=== PATIENT | female | born 1950 | race Caucasian/White ===

== ENCOUNTER 2017-01-27 01:28 | Emergency (ER) | payer OTHER ==
[~2017-01-27 01:28] MED LIST: ABILIFY5 MG PO; AMLODIPINE BESY10 MG PO; DILANTIN100 MG PO; IBUPROFEN400 MG PO; LEVAQUIN500 MG PO; METOPROLOL SUCC25 MG PO; PRAVACHOL40 MG PO; SEROQUEL100 MG PO; SPIRIVA18 MCG INH; ZOFRAN ODT4 MG PO
--- NOTE | 2017-01-27 02:16 | ED CLINICAL REPORT ---
Clinical Report - Physicians/Mid Levels [facility] [address] [place] [address] 01/27/2017 1:29 Patient: TRINIDAD GIANG Time Seen: 02:07. Arrived- By private vehicle. Historian- patient. HISTORY OF PRESENT ILLNESS Chief Complaint: UPPER EXTREMITY SWELLING. Modifying factors. Not worsened by anything. Not made better by anything. Severity is described as being moderate in degree. The quality is noted to be "pain" (swelling, redness). This started about 2 days ago and is still present. Symptoms located in the area of the right hand. No chest pain, difficulty breathing, sensory loss, motor loss or repetitive hand use at work. She has had redness and swelling. (PT states she does not otherwise feel ill.). Patient notes the possibility of an injury. Mechanism of injury- (PT was working in her garden, and may have scratched or pricked herself, she states.). Similar symptoms previously: None. Recent medical care: Not recently seen/assessed. REVIEW OF SYSTEMS No fever, chills, eye discomfort, headache or sore throat. No cough, enlarged lymph nodes, neck pain, abdominal pain or nausea. No vomiting, diarrhea, black stools, difficulty with urination or urinary frequency. No hematuria or bloody stools. The patient has had a moderate, painful skin rash consisting of "redness" located on the right hand. All systems otherwise negative, except as recorded above. PAST HISTORY Problems: Tetanus Status. Immunizations. LNMP - Last Normal Menstrual Period. Hepatitis. Seizure Disorder. Bipolar Disorder. Schizophrenia. COPD - Chronic Obstructive Pulmonary Disease. Additional Surgeries: Adenoidectomy. Fracture Repair. Hysterectomy. Tonsillectomy. Medications: Chantix Oral. Pravastatin Sodium Oral. Metoprolol Tartrate Oral. Abilify Oral. Dilantin Oral. Allergies: Cortisone. Neosporin. SOCIAL HISTORY Smoker- current status unknown. History of drug use: marijuana. No alcohol use. ADDITIONAL NOTES The nursing notes have been reviewed. PHYSICAL EXAM Vital Signs: 01/27/2017 01:33 BP: 125/62. HR: 63. RR: 18. O2 saturation: 100%. Temp: 97.6 F. Pain level now: 10/15. Have been reviewed. Appearance: Alert. Oriented X3. No acute distress. Eyes: Pupils equal, round and reactive to light. Eyes normal inspection. ENT: Nose normal. Neck: Normal inspection. CVS: Normal heart rate and rhythm. Pulses normal. Strong peripheral pulses. Respiratory: No respiratory distress. Back: ROM normal. Skin: Skin intact. Skin warm and dry. Extremities: Right hand: mild erythema, tenderness and swelling localized to the distal and dorsal aspect of the hand. Neurovascular intact distally. (Involves proximal R middle finger. No flexor tendon tenderness.). No laceration, abrasion, ecchymosis, puncture wound or foreign body. No deformity. Extremities otherwise negative. Neuro: No motor deficit. No sensory deficit. (Grossly oriented.). LABS, X-RAYS, AND EKG Pulse Oximetry: 01/27/2017 01:33 O2 saturation: 100%. (FIO2 - room air). Interpretation: normal. PROGRESS AND PROCEDURES Course of Care: I did not find evidence of an abscess, deep tissue infection, or flexor tenosynovitis. Pt was given a dose of Bactrim for her cellulitis. We discussed the usual indications for return. Patient counseled in person regarding the patient's stable condition, diagnosis and need for follow-up. Concerns were addressed. Old medical records reviewed. Disposition: Discharged. Condition: stable. CLINICAL IMPRESSION Cellulitis of the right hand and right middle finger. INSTRUCTIONS Warnings: GENERAL WARNINGS: Return or contact your physician immediately if your condition worsens or changes unexpectedly, if not improving as expected, or if other problems arise. Your Current Medications: CONTINUE TAKING THE FOLLOWING MEDICATIONS: Abilify Oral. Chantix Oral. Dilantin Oral. Metoprolol Tartrate Oral. Pravastatin Sodium Oral. Prescription Medications: Hydrocodone/APAP 5mg / 325mg: take 1 orally every 6 hours as needed for pain. Dispense five (5). No refill. Trimethoprim-Sulfamethoxazole DS: take 1 tablet orally every 12 hours for 7 days. No refill. Follow-up: Follow up with your doctor in seven days if not better. Understanding of the discharge instructions verbalized by patient. (Electronically signed by Grecia Jackson MD 02/08/2017 17:10)
--- NOTE | 2017-01-27 02:16 | ED ORDER SUMMARY ---
..... Patient: TRINIDAD GIANG OrderSheet [facility] VisitID: [id number] [place] [address] 67y, F Registration Date/Time: 01/27/2017 ORDER SHEET Weight: 54.4 kg (stated) Allergies: Neosporin, Cortisone GENERAL ORDERS: MEDICATION ORDERS: Bactrim DS PO (Tablet 800-160 mg) 1 tab (NOW) (02:14 01/27/2017 [place] LOOMIS) (Ack 2:15 RMarsden R.N.) (2:18 RMarsden R.N.) IV FLUIDS: ORDER SHEET NOTES: [Electronically signed by Blanca Helm R.N. (12:59 02/01/2017)] [Electronically signed by Grecia Jackson MD (17:10 02/08/2017)] [Electronically locked/signed by Blanca Helm R.N. (12:59 02/01/2017)]
--- NOTE | 2017-01-27 02:16 | ED NURSING NOTES ---
Clinical Report - Nurses [facility] [address] [place] [address] 01/27/2017 1:29 Patient: TRINIDAD GIANG TRIAGE Triage time 01:34. Acuity: LEVEL 4. Chief Complaint: RIGHT UPPER EXTREMITY PAIN, SWELLING and REDNESS. --01:42 Rain Torres R.N. 01:33 01/27/17. BP: 125/62 taken on the left arm, while lying. HR: 63 (regular and normal rate). RR: 18. O2 saturation: 100% on room air. Temp: 97.6 F. Pain level now: 10/15. --01:42 Rain Torres R.N. Weight: 54.4 kg stated. Height/Length: 63 inches Per Patient. BMI: 21.2. --01:34 Rain Torres R.N. Medications Dilantin Oral. --01:37 Rain Torres R.N. Abilify Oral. --01:38 Rain Torres R.N. Metoprolol Tartrate Oral. --01:38 Rain Torres R.N. Pravastatin Sodium Oral. --01:39 Rain Torres R.N. Chantix Oral. --01:39 Rain Torres R.N. Allergies Neosporin. --01:37 Rain Torres R.N. Cortisone. --01:37 Rain Torres R.N. History Arrived by private vehicle. Historian: patient. This occurred (2 days ago). ( digging in yard 2 days ago now noticed itching and tingling with redness and swelling to right middle finger). PAST MEDICAL HX: Date of last tetanus shot cannot be recalled. The patient is post-menopausal. SOCIAL HX: Smoker- current status unknown. History of heavy drug use: marijuana. Recently used drugs just prior to arrival. No alcohol use. She has not traveled outside the [place] The patient was not exposed to tuberculosis, influenza, chicken pox, meningitis, MRSA, VRE, C-diff, SARS, Ariel flu, H1N1 flu, Ebola or MERS. SELF HARM ASSESSMENT: A self harm assessment was performed. The patient answered "no" to the question "Have you recently felt down, depressed, or hopeless?", "Have you noticed less interest or pleasure in doing things?", "Do you have thoughts of harming or killing yourself?", "Are you here because you tried to hurt yourself?", "Have you ever tried to hurt yourself before today?", "Have you recently had thoughts about harming or killing others?" and "Do you have any dangerous items in your possession?". FALL RISK ASSESSMENT: Fall risk assessment completed. No fall risk identified. NUTRITIONAL RISK ASSESSMENT: The nutritional risk assessment revealed no deficiencies. FUNCTIONAL ASSESSMENT: Functional assessment: no impairments noted. LEARNING NEEDS ASSESSMENT: The learning needs assessment revealed no barriers. ABUSE ASSESSMENT: Abuse assessment: The patient was asked "Do you feel safe in your home?" Abuse denied by patient. SKIN INTEGRITY ASSESSMENT: Skin integrity risk assessment completed. No skin integrity risk identified. --01:42 Rain Torres R.N. PROBLEMS: Bowel Obstruction. Contusion. Conjunctivitis. Hepatitis. Seizure Disorder. Bipolar Disorder. Schizophrenia. COPD - Chronic Obstructive Pulmonary Disease. --01:40 Rain Torres R.N. Fractured Phalanx (Finger) [RuleOut]. --01:40 Rain Torres R.N. ADDITIONAL SURGERIES: Adenoidectomy. Fracture Repair. Hysterectomy. Tonsillectomy. --01:40 Rain Torres R.N. Interventions ID band on patient. --01:42 Rain Torres R.N. PHYSICAL ASSESSMENT Ambulatory to room. GENERAL / NEURO / PSYCH: Oriented X 4. Appears in no acute distress. EXTREMITIES: Erythema on the extremities. Non-pitting edema of the upper extremities. right middle finger. Neuro-vascular status intact to the extremity. Right hand: tenderness, swelling, erythema and ecchymosis. SKIN: Skin intact. Skin is warm and dry. --01:43 Rain Torres R.N. NURSING PROGRESS NOTES Two patient identifiers checked. Call light placed in reach. Side rails up x 1. Bed placed in lowest position. Brakes of bed on. --01:43 Rain Torres R.N. Patient ready for evaluation- chart flagged. --01:43 Rain Torres R.N. DISPOSITION / DISCHARGE 02:18 01/27/2017 Bactrim DS (Sulfamethoxazole-TMP DS) PO Tablets 1 tab given. Allergies verified and confirmed 5 rights. --02:18 Aria Mac R.N. 02:22 01/27/17. Departure time: 02:22. No learning barriers present. Discharge instructions provided and reviewed with the patient. Reviewed warnings. Reviewed medication(s). Treatments reviewed. Reviewed referrals. Patient verbalized understanding. Written instructions provided in Kyrgyz. The patient was discharged home. She left the Emergency Department ambulatory and via private vehicle. --02:22 Aria Mac R.N. 01:33 01/27/17. BP: 125/62 taken on the left arm, while lying. HR: 63 (regular and normal rate). RR: 18. O2 saturation: 100% on room air. Temp: 97.6 F. Pain level now: 10/15. --02:22 Aria Mac R.N. Locked/Released at 02/01/2017 12:59 by Blanca Helm R.N.
--- NOTE | 2017-01-27 02:16 | ED ORDER SUMMARY ---
..... Patient: TRINIDAD GIANG OrderSheet [facility] VisitID: [id number] [place] [address] 67y, F Registration Date/Time: 01/27/2017 ORDER SHEET Weight: 54.4 kg (stated) Allergies: Neosporin, Cortisone GENERAL ORDERS: MEDICATION ORDERS: Bactrim DS PO (Tablet 800-160 mg) 1 tab (NOW) (02:14 01/27/2017 [place] LOOMIS) (Ack 2:15 RMarsden R.N.) (2:18 RMarsden R.N.) IV FLUIDS: ORDER SHEET NOTES: [Electronically signed by Blanca Helm R.N. (12:59 02/01/2017)] [Electronically signed by Grecia Jackson MD (17:10 02/08/2017)] [Electronically locked/signed by Blanca Helm R.N. (12:59 02/01/2017)]
--- NOTE | 2017-02-08 17:11 | ED MED RECONCILIATION SUMMARY ---
Patient: TRINIDAD GIANG Medication Reconciliation Report [facility] VisitID: [id number] [place] [address] 67y, F Registration Date/Time: 01/27/2017 Weight: 54.4 kg Height/Length: 63 in. BMI: 21.3 ALLERGIES: Cortisone, Neosporin The patient's Home Medications are listed below: CONTINUE TAKING THE FOLLOWING MEDICATIONS: Abilify Oral Chantix Oral Dilantin Oral Metoprolol Tartrate Oral Pravastatin Sodium Oral The source(s) of the original Home Medication information: Not obtained. The following Medications were given to the patient in the Emergency Department: Bactrim DS [PO] PO 1 tab, administered: 01/27/2017 2:18:00 AM The following Medications were prescribed to the patient: Hydrocodone/APAP 5mg / 325mg: take 1 orally every 6 hours as needed for pain. Dispense five (5). No refill. -- Grecia Jackson MD Trimethoprim-Sulfamethoxazole DS: take 1 tablet orally every 12 hours for 7 days. No refill. -- Grecia Jackson MD
--- NOTE | 2017-02-08 17:11 | ED MAR SUMMARY ---
..... Medication Administration Record [facility] [address] [place] [address] Patient: TRINIDAD GIANG Visit ID: [id number] 67y, F Weight: 54.4 kg Height/Length: 63 in BMI: 21.2 ALLERGIES: Cortisone, Neosporin Given 02:18 01/27/2017 Aria Mac RDenisse Medication Administered: BACTRIM DS [PO] (SULFAMETHOXAZOLE-TMP DS), Dose: 1 tab Tablets PO. Medication Ordered: Bactrim DS PO (Tablet 800-160 mg) 1 tab (NOW).
--- NOTE | 2017-02-08 17:11 | ED MED RECONCILIATION SUMMARY ---
Patient: TRINIDAD GIANG Medication Reconciliation Report [facility] VisitID: [id number] [place] [address] 67y, F Registration Date/Time: 01/27/2017 Weight: 54.4 kg Height/Length: 63 in. BMI: 21.3 ALLERGIES: Cortisone, Neosporin The patient's Home Medications are listed below: CONTINUE TAKING THE FOLLOWING MEDICATIONS: Abilify Oral Chantix Oral Dilantin Oral Metoprolol Tartrate Oral Pravastatin Sodium Oral The source(s) of the original Home Medication information: Not obtained. The following Medications were given to the patient in the Emergency Department: Bactrim DS [PO] PO 1 tab, administered: 01/27/2017 2:18:00 AM The following Medications were prescribed to the patient: Hydrocodone/APAP 5mg / 325mg: take 1 orally every 6 hours as needed for pain. Dispense five (5). No refill. -- Grecia Jackson MD Trimethoprim-Sulfamethoxazole DS: take 1 tablet orally every 12 hours for 7 days. No refill. -- Grecia Jackson MD
--- NOTE | 2017-02-08 17:11 | ED DISCHARGE INSTRUCTIONS ---
Patient: TRINIDAD GIANG General Instructions [facility] VisitID: [id number] [place] [address] 67y, F Registration Date/Time: 01/27/2017 Cellulitis of the right hand and right middle finger. INSTRUCTIONS Warnings: GENERAL WARNINGS: Return or contact your physician immediately if your condition worsens or changes unexpectedly, if not improving as expected, or if other problems arise. Your Current Medications: CONTINUE TAKING THE FOLLOWING MEDICATIONS: Abilify Oral. Chantix Oral. Dilantin Oral. Metoprolol Tartrate Oral. Pravastatin Sodium Oral. Prescription Medications: Hydrocodone/APAP 5mg / 325mg: take 1 orally every 6 hours as needed for pain. Dispense five (5). No refill. Trimethoprim-Sulfamethoxazole DS: take 1 tablet orally every 12 hours for 7 days. No refill. Follow-up: Follow up with your doctor in seven days if not better. Understanding of the discharge instructions verbalized by patient. ADDITIONAL INFORMATION Cellulitis You have an infection of the skin known as cellulitis. This usually starts with a scrape, cut, insect bite, blister or other opening in the skin which becomes infected. This is a serious condition. It must be watched closely to be sure the infection is not spreading. With antibiotic treatment, the size of the red area will gradually shrink in size until the skin returns to normal. This will take 7-10 days. The red area should never increase in size once the antibiotic medicine has been started. Occasionally, an infection will be resistant to one antibiotic and another one will have to be used. Home Care: 1) Limit the use of the affected part, since excess movement can cause the infection to spread. 2) If the infection is on your leg, walk as little as possible during the first few days of the treatment. Keep your leg elevated while sitting. This will reduce swelling. 3) Take all of the antibiotic medicine exactly as directed until it is gone. Be careful not to miss any doses, especially during the first seven days. Follow Up with your doctor or this facility as directed. Check the infected area daily for the warning signs listed below. Get Prompt Medical Attention if any of the following occur: -- Spreading area of redness -- Increasing swelling or pain -- Appearance of pus or drainage -- Fever over 100.4 F (38.0 C) oral, or over 101.4 F (38.6 C) rectal, after two days on antibiotics You have been given the following additional information: Cellulitis (Electronically signed by Grecia Jackson MD 02/08/2017 17:10)
--- NOTE | 2017-02-08 17:11 | ED MAR SUMMARY ---
..... Medication Administration Record [facility] [address] [place] [address] Patient: TRINIDAD GIANG Visit ID: [id number] 67y, F Weight: 54.4 kg Height/Length: 63 in BMI: 21.2 ALLERGIES: Cortisone, Neosporin Given 02:18 01/27/2017 Aria Mac RDenisse Medication Administered: BACTRIM DS [PO] (SULFAMETHOXAZOLE-TMP DS), Dose: 1 tab Tablets PO. Medication Ordered: Bactrim DS PO (Tablet 800-160 mg) 1 tab (NOW).
== END 2017-01-27 02:22 | disposition home or self-care (01) ==
LOC: ED SRH 01:28
DX: L03.113 Cellulitis of right upper limb (principal); L03.011 Cellulitis of right finger; Z79.899 Other long term (current) drug therapy; Z72.0 Tobacco use; Z88.8 Allergy status to other drugs, medicaments and biological substances; Z90.710 Acquired absence of both cervix and uterus

== ENCOUNTER 2017-01-30 16:36 | Emergency (ER) | payer OTHER ==
--- NOTE | 2017-01-30 18:14 | ED ORDER SUMMARY ---
..... Patient: TRINIDAD GIANG OrderSheet [facility] VisitID: [id number] [place] [address] 67y, F Registration Date/Time: 01/30/2017 ORDER SHEET Weight: 54.4 kg (stated) Allergies: Cortisone, Neosporin GENERAL ORDERS: CBC w Diff Urgent (17:11 01/30/2017 EKoroleva P.A.-C) (Ack 17:12 MIHIRoerdev) (17:31 Paul R.N.) BMP Urgent (17:11 01/30/2017 EKoroleva P.A.-C) (Ack 17:12 MIHIRoerdev) (17:31 Paul R.N.) PCT (Procalcitonin) Urgent (17:01/30/2017 EKoroleva P.A.-C) (Ack 17:12 MIHIRoepatito) (17:31 Paul R.N.) MEDICATION ORDERS: Bupivacaine Injection 0.5 % (soln) (NOW, place at bedside, with syringes & needles) (17:11 01/30/2017 EKoroleva P.A.-C) (Ack 17:31 Paul R.N.) IV FLUIDS: IV NS : initial bolus 1000 mL (1000 mL/hr), then 1000 mL/hr for X1 (NOW); Skinny (17:24 01/30/2017 EKoroleva P.A.-C) (Ack 17:31 Paul R.N.) (17:41 Paul R.N.) Clindamycin IV 900 mg/50mL (NOW) (17:24 01/30/2017 EKoroleva P.A.-C) (Ack 17:32 Paul R.N.) (17:42 Paul R.N.) ORDER SHEET NOTES: [Electronically signed by Kristi Cardoso PCeA.-C (18:43 01/30/2017)] [Electronically signed by Dee Dee Rousseau R.N. (08:00 01/31/2017)] [Electronically locked/signed by Dee Dee Rousseau R.N. (08:00 01/31/2017)]
--- NOTE | 2017-01-30 18:14 | ED CLINICAL REPORT ---
Clinical Report - Physicians/Mid Levels [facility] [address] [place] [address] 01/30/2017 16:38 Patient: TRINIDAD GIANG Time Seen: 17:49 Jan 30 2017. Arrived- By private vehicle. Historian- patient. HISTORY OF PRESENT ILLNESS Chief Complaint: SKIN RASH. This started 5 days SET OFF [employer] and is still present. It is described as painful. It has been located on the right index finger. (Patient reports's in the yard with her over the last few days, and unsure if she sustained injury, however has had swelling of her right middle digit. Patient was seen on the and started on antibiotics. Reports she was able to drain some pus out. Denies using warm soaks at home. Patient has been taking antibiotics. Denies any fevers or chills. Reports part of the rash has spread into her forearm as well as her bicep. Denies any fevers or chills.). REVIEW OF SYSTEMS No cough or lump in throat. All systems otherwise negative, except as recorded above. SOCIAL HISTORY Former smoker. Alcohol use. Patient is a recovering alcoholic. History of drug use: marijuana. ADDITIONAL NOTES The nursing notes have been reviewed. PHYSICAL EXAM Vital Signs: 01/30/2017 17:09 BP: 165/82. HR: 73. RR: 18. O2 saturation: 100%. Temp: 98.3 F. Pain level now: 2/10. Appearance: Alert. Neck: Lymphadenopathy present (streak to mid bicep). CVS: Normal heart rate and rhythm. Respiratory: No respiratory distress. Chest nontender. Skin: Skin warm. Erythema (r. middle digit paronychia noted,). There is warmth and lymphangitis. LABS, X-RAYS, AND EKG Laboratory Tests: CBC w Diff: (LISA: 01/30/2017 17:20) ( MsgRcvd 01/30/2017 17:52) Final results Test Result Flag Units (Reference) WHITE BLOOD COUNT 9.0 K/uL (4.5-11.5) RED BLOOD COUNT 3.78 L M/uL (4.00-5.20) HEMOGLOBIN 11.4 L gm/dL (12.0-16.0) HEMATOCRIT 34.1 L % (36.0-46.0) MEAN CELL VOLUME 90 fL (80-100) MEAN CORPUSCULAR HGB 30 pg (26-34) MEAN CORPUSCULAR HGB CONC 33 g/dL (31-37) RED CELL DISTRIBUTION WIDTH 13.6 % (11.6-14.8) PLATELET COUNT 212 K/uL (150-400) NEUTROPHIL % 57.9 % (50-75) LYMPH % 32.2 % (25-40) MONO % 7.0 % (3-14) EOSINOPHIL % 0.9 % (0-4) BASOPHIL % 2.0 % (0-2) [id number]: (LISA: 01/30/2017 17:20) ( MsgRcvd 01/30/2017 18:15) Final results Test Result Flag Units (Reference) PROCALCITONIN < 0.05 ng/mL (0-0.5) PCT Concentration: Interpretation : Risk/option for action PCT <=0.5 ng/mL : Systemic : Low risk forinfection(sepsis): progression to severeis not likely. : systemic infection.Local bacterial : CAUTION-PCT levelsinfection is : below 0.5 ng/mL do notpossible. : exclude an infection,because localizedinfections (withoutsystemic signs) may beassociated with suchlow levels. If PCT ismeasured very earlyafter a bacterialchallenge (usually <6hours), these valuesmay still be low. Inthis case PCT shouldbe re-assessed 6-24hours later. PCT >0.5 and : Systemic infection: Moderate risk for<= 2 ng/mL : (sepsis) is : progression to severepossible, but : systemic infection.other conditions : The patient should beare known to : closely monitoredelevate PCT. : both clinically andby re-assessing PCTwithin 6-24 hours. PCT > 2 ng/mL : Systemic infection: High risk for(sepsis) is likely: progression to severeunless other : systemic infection.causes are known. : PCT >= 10 ng/mL : Important systemic: High likelihood ofinflammatory : severe sepsis orresponse, almost : septic shock.exclusively due to:severe bacterial :sepsis or septic :shock. : BMP: (LISA: 01/30/2017 17:20) ( MsgRcvd 01/30/2017 18:12) Final results Test Result Flag Units (Reference) GLUCOSE 97 mg/dL (70-110) BUN 12 mg/dL (7-18) CREATININE 0.9 mg/dL (0.6-1.3) Estimated GFR >60 mL/min Estimated GFR- >60 mL/min Note: Persistent reduction over 3 months in eGFR<60 mL/min/1.73 m2 defines CKD. Patients with eGFR values>=60 mL/min/1.73 m2 may also have CKD if evidence ofpersistent proteinuria. Additional information may be foundat www.kidney.org. SODIUM 128 L mmol/L (136-145) POTASSIUM 3.7 mmol/L (3.5-5.1) CHLORIDE 94 L mmol/L (98-107) CARBON DIOXIDE 21 mmol/L (21-32) CALCIUM 9.3 mg/dL (8.5-10.1) . PROGRESS AND PROCEDURES Incision & Drainage of Abscess: Time-out completed immediately before the procedure. The abscess is located (r. middle digit). The risks of the procedure, benefits and alternatives were explained. Consent was obtained. Anesthesia provided by digital block using 0.50% Marcaine. ( small lateral incicision made with puurlent mild drainage). Course of Care: Paronychia drained, patient is afebrile with no tachycardia, no sepsis criteria. No injury crush injury in nature. Patient also given IV antibiotics, clindamycin, to have this reevaluated in 48 hours, to encourage warm soaks of the digit. 01/30/2017 18:20 BP: 144/78. HR: 70. RR: 18. O2 saturation: 97%. Pain level now: 4/10. Patient is stable. Symptoms better. Patient/family counseled. Disposition: Discharged. CLINICAL IMPRESSION Paronychia right middle finger. INSTRUCTIONS (salt water warm soaks follow up in 2-3 days to ensure improvement in ER or with PCP Address: [address] [place] [id number] elevate arm/ finger). Your Current Medications: CONTINUE TAKING THE FOLLOWING MEDICATIONS: Abilify Oral. Bactrim DS Oral : Started: 01/27/17. Chantix Oral. Dilantin Oral. Metoprolol Tartrate Oral. Pravastatin Sodium Oral. Prescription Medications: Clindamycin 300 mg: take 1 capsule orally every 8 hours for 10 days. No refill. (Electronically signed by Kristi Cardoso P.A.-C 01/30/2017 18:43)
--- NOTE | 2017-01-30 18:14 | ED ORDER SUMMARY ---
..... Patient: TRINIDAD GIANG OrderSheet [facility] VisitID: [id number] [place] [address] 67y, F Registration Date/Time: 01/30/2017 ORDER SHEET Weight: 54.4 kg (stated) Allergies: Cortisone, Neosporin GENERAL ORDERS: CBC w Diff Urgent (17:11 01/30/2017 EKoroleva P.A.-C) (Ack 17:12 MIHIRoerdev) (17:31 Paul R.N.) BMP Urgent (17:11 01/30/2017 EKoroleva P.A.-C) (Ack 17:12 MIHIRoerdev) (17:31 Paul R.N.) PCT (Procalcitonin) Urgent (17:01/30/2017 EKoroleva P.A.-C) (Ack 17:12 MIHIRoepatito) (17:31 Paul R.N.) MEDICATION ORDERS: Bupivacaine Injection 0.5 % (soln) (NOW, place at bedside, with syringes & needles) (17:11 01/30/2017 EKoroleva P.A.-C) (Ack 17:31 Paul R.N.) IV FLUIDS: IV NS : initial bolus 1000 mL (1000 mL/hr), then 1000 mL/hr for X1 (NOW); Skinny (17:24 01/30/2017 EKoroleva P.A.-C) (Ack 17:31 Paul R.N.) (17:41 Paul R.N.) Clindamycin IV 900 mg/50mL (NOW) (17:24 01/30/2017 EKoroleva P.A.-C) (Ack 17:32 Paul R.N.) (17:42 Paul R.N.) ORDER SHEET NOTES: [Electronically signed by Kristi Cardoso PCeA.-C (18:43 01/30/2017)] [Electronically signed by Dee Dee Rousseau R.N. (08:00 01/31/2017)] [Electronically locked/signed by Dee Dee Rousseau R.N. (08:00 01/31/2017)]
--- NOTE | 2017-01-30 18:14 | ED CLINICAL REPORT ---
Clinical Report - Physicians/Mid Levels [facility] [address] [place] [address] 01/30/2017 16:38 Patient: TRINIDAD GIANG Time Seen: 17:49 Jan 30 2017. Arrived- By private vehicle. Historian- patient. HISTORY OF PRESENT ILLNESS Chief Complaint: SKIN RASH. 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 It is described as painful. It has been located on the right index finger. (Patient reports's in the yard with her over the last few days, and unsure if she sustained injury, however has had swelling of her right middle digit. Patient was seen on the and started on antibiotics. Reports she was able to drain some pus out. Denies using warm soaks at home. Patient has been taking antibiotics. Denies any fevers or chills. Reports part of the rash has spread into her forearm as well as her bicep. Denies any fevers or chills.). REVIEW OF SYSTEMS No cough or lump in throat. All systems otherwise negative, except as recorded above. SOCIAL HISTORY Former smoker. Alcohol use. Patient is a recovering alcoholic. History of drug use: marijuana. ADDITIONAL NOTES The nursing notes have been reviewed. PHYSICAL EXAM Vital Signs: 01/30/2017 17:09 BP: 165/82. HR: 73. RR: 18. O2 saturation: 100%. Temp: 98.3 F. Pain level now: 2/10. Appearance: Alert. Neck: Lymphadenopathy present (streak to mid bicep). CVS: Normal heart rate and rhythm. Respiratory: No respiratory distress. Chest nontender. Skin: Skin warm. Erythema (r. middle digit paronychia noted,). There is warmth and lymphangitis. LABS, X-RAYS, AND EKG Laboratory Tests: CBC w Diff: (LISA: 01/30/2017 17:20) ( MsgRcvd 01/30/2017 17:52) Final results Test Result Flag Units (Reference) WHITE BLOOD COUNT 9.0 K/uL (4.5-11.5) RED BLOOD COUNT 3.78 L M/uL (4.00-5.20) HEMOGLOBIN 11.4 L gm/dL (12.0-16.0) HEMATOCRIT 34.1 L % (36.0-46.0) MEAN CELL VOLUME 90 fL (80-100) MEAN CORPUSCULAR HGB 30 pg (26-34) MEAN CORPUSCULAR HGB CONC 33 g/dL (31-37) RED CELL DISTRIBUTION WIDTH 13.6 % (11.6-14.8) PLATELET COUNT 212 K/uL (150-400) NEUTROPHIL % 57.9 % (50-75) LYMPH % 32.2 % (25-40) MONO % 7.0 % (3-14) EOSINOPHIL % 0.9 % (0-4) BASOPHIL % 2.0 % (0-2) [id number]: (LISA: 01/30/2017 17:20) ( MsgRcvd 01/30/2017 18:15) Final results Test Result Flag Units (Reference) PROCALCITONIN < 0.05 ng/mL (0-0.5) PCT Concentration: Interpretation : Risk/option for action PCT <=0.5 ng/mL : Systemic : Low risk forinfection(sepsis): progression to severeis not likely. : systemic infection.Local bacterial : CAUTION-PCT levelsinfection is : below 0.5 ng/mL do notpossible. : exclude an infection,because localizedinfections (withoutsystemic signs) may beassociated with suchlow levels. If PCT ismeasured very earlyafter a bacterialchallenge (usually <6hours), these valuesmay still be low. Inthis case PCT shouldbe re-assessed 6-24hours later. PCT >0.5 and : Systemic infection: Moderate risk for<= 2 ng/mL : (sepsis) is : progression to severepossible, but : systemic infection.other conditions : The patient should beare known to : closely monitoredelevate PCT. : both clinically andby re-assessing PCTwithin 6-24 hours. PCT > 2 ng/mL : Systemic infection: High risk for(sepsis) is likely: progression to severeunless other : systemic infection.causes are known. : PCT >= 10 ng/mL : Important systemic: High likelihood ofinflammatory : severe sepsis orresponse, almost : septic shock.exclusively due to:severe bacterial :sepsis or septic :shock. : BMP: (LISA: 01/30/2017 17:20) ( MsgRcvd 01/30/2017 18:12) Final results Test Result Flag Units (Reference) GLUCOSE 97 mg/dL (70-110) BUN 12 mg/dL (7-18) CREATININE 0.9 mg/dL (0.6-1.3) Estimated GFR >60 mL/min Estimated GFR- >60 mL/min Note: Persistent reduction over 3 months in eGFR<60 mL/min/1.73 m2 defines CKD. Patients with eGFR values>=60 mL/min/1.73 m2 may also have CKD if evidence ofpersistent proteinuria. Additional information may be foundat www.kidney.org. SODIUM 128 L mmol/L (136-145) POTASSIUM 3.7 mmol/L (3.5-5.1) CHLORIDE 94 L mmol/L (98-107) CARBON DIOXIDE 21 mmol/L (21-32) CALCIUM 9.3 mg/dL (8.5-10.1) . PROGRESS AND PROCEDURES Incision & Drainage of Abscess: Time-out completed immediately before the procedure. The abscess is located (r. middle digit). The risks of the procedure, benefits and alternatives were explained. Consent was obtained. Anesthesia provided by digital block using 0.50% Marcaine. ( small lateral incicision made with puurlent mild drainage). Course of Care: Paronychia drained, patient is afebrile with no tachycardia, no sepsis criteria. No injury crush injury in nature. Patient also given IV antibiotics, clindamycin, to have this reevaluated in 48 hours, to encourage warm soaks of the digit. 01/30/2017 18:20 BP: 144/78. HR: 70. RR: 18. O2 saturation: 97%. Pain level now: 4/10. Patient is stable. Symptoms better. Patient/family counseled. Disposition: Discharged. CLINICAL IMPRESSION Paronychia right middle finger. INSTRUCTIONS (salt water warm soaks follow up in 2-3 days to ensure improvement in ER or with PCP Address: [address] [place] [id number] elevate arm/ finger). Your Current Medications: CONTINUE TAKING THE FOLLOWING MEDICATIONS: Abilify Oral. Bactrim DS Oral : Started: 01/27/17. Chantix Oral. Dilantin Oral. Metoprolol Tartrate Oral. Pravastatin Sodium Oral. Prescription Medications: Clindamycin 300 mg: take 1 capsule orally every 8 hours for 10 days. No refill. (Electronically signed by Kristi Cardoso P.A.-C 01/30/2017 18:43)
--- NOTE | 2017-01-30 18:14 | ED NURSING NOTES ---
Clinical Report - Nurses [facility] [address] [place] [address] 01/30/2017 16:38 [id number] TRIAGE Triage time 17:06. Acuity: LEVEL 3. Chief Complaint: RIGHT UPPER EXTREMITY PAIN and REDNESS. Alert. No acute distress. HERVE COMA SCORE: Jackson Coma Scale: 15- eyes open spontaneously (4); best verbal response- oriented x 4 (5); best motor response- obeys commands (6). --17:13 Dee Dee Rousseau R.N. 17:09 01/30/17. BP: 165/82. HR: 73. RR: 18. O2 saturation: 100% on room air. Temp: 98.3 F (oral). Pain level now: 10/15. --17:13 Dee Dee Rousseau R.N. Weight: 54.4 kg stated. Height/Length: 63 inches Per Patient. BMI: 21.2. --17:10 Dee Dee Rousseau R.N. Medications Abilify Oral. Chantix Oral. Dilantin Oral. Metoprolol Tartrate Oral. Pravastatin Sodium Oral. --17:07 Dee Dee Rousseau R.N. Bactrim DS Oral, started 01/27/17. --17:10 Dee Dee Rousseau R.N. Medication/allergy information source: the patient. --17:13 Dee Dee Rousseau R.N. Allergies Cortisone. Neosporin. --17:07 Dee Dee Rousseau R.N. History Arrived by private vehicle. Historian: patient. Unaccompanied. Primary physician (Saurabh). This occurred today. SOCIAL HX: Former smoker. Alcohol use. Patient is a recovering alcoholic. History of drug use: marijuana. FALL RISK ASSESSMENT: Fall risk assessment completed. No fall risk identified. LEARNING NEEDS ASSESSMENT: The learning needs assessment revealed no barriers. FUNCTIONAL ASSESSMENT: Functional assessment performed: hearing impairment present. --17:13 Soham, Dee Dee, R.N. PROBLEMS: Cellulitis. Bowel Obstruction. Vomiting. Contusion. Laceration. Tetanus Status. Conjunctivitis. Immunizations. Abdominal Pain. LNMP - Last Normal Menstrual Period. Hepatitis. Seizure Disorder. Bipolar Disorder. Schizophrenia. COPD - Chronic Obstructive Pulmonary Disease. UTI - Urinary Tract Infection. --17:08 Dee Dee Rousseau R.N. Fractured Phalanx (Finger) [RuleOut]. --17:08 Dee Dee Rousseau R.N. ADDITIONAL SURGERIES: Adenoidectomy. Fracture Repair. Hysterectomy. Tonsillectomy. --17:08 Dee Dee Rousseau R.N. Assessment GENERAL / NEURO / PSYCH: Alert. Oriented X 4. Appears in no acute distress. Patient appears calm and cooperative. RESPIRATORY: Respirations not labored. SKIN: Skin is warm and dry. --17:13 Dee Dee Rousseau R.N. Interventions ID and allergy band on patient. To treatment room. --17:13 Dee Dee Rousseau R.N. PHYSICAL ASSESSMENT 17:30 01/30/17. Ambulatory to room. GENERAL / NEURO / PSYCH: Oriented X 4. Alert. Appears in no acute distress. EXTREMITIES: ( red streaks up right arm). SKIN: Skin is warm and dry. --17:30 Dee Dee Rousseau R.N. NURSING PROGRESS NOTES 17:26 01/30/2017 Site #1 started via IV in the left antecubital space with an 20g angiocath, with aseptic technique and good blood return; one attempt. Blood drawn: rainbow set. Labeled in the presence of the patient and sent to the lab. Saline lock flushed with 10 mL saline. --17:31 Dee Dee Rousseau R.N. <<STRICKEN ENTRY-- 17:30 01/30/2017 Site #1 removed (pt pulled the IV out trying to get out of bed). --17:45 Dee Dee Rousseau R.N. --END STRIKE>> Charted on wrong patient. --18:32 Dee Dee Rousseau R.N. 17:30 01/30/17. Call light placed in reach. Side rails up x 1. Bed placed in lowest position. Brakes of bed on. --17:30 Dee Dee Rousseau R.N. 17:41 01/30/2017 Started bag #1 1000 mL IV Fluids IV NS (Saline); at 1000 mL/hr over 1 hour(s) via site #1 via IV pump. --17:41 Dee Dee Rousseau R.N. 17:42 01/30/2017 Started 900 mg of Clindamycin IVPB in bag #1 50 mL; at 100 mL/hr over 30 hour(s) via site #1; Allergies verified and confirmed 5 rights. IV patency established. IV site checked: no pain, redness, or swelling. IV flushed thoroughly pre- and post-medication administration. --17:42 Dee Dee Rousseau R.N. 18:20 01/30/2017 Site #1 removed upon discharge. Catheter intact. Bandaid applied. --18:32 Dee Dee Rousseau R.N. 18:20. The patient is calm. Overall patient status is the same- she states feels the same. GENERAL / NEURO / PSYCH: Alert. Oriented X 4. RESPIRATORY: No respiratory distress. SKIN: Skin is warm and dry. --07:56 Dee Dee Rousseau R.N. DISPOSITION / DISCHARGE Departure time: 0. Condition at departure: stable. No learning barriers present. Discharge instructions provided and reviewed with the patient. Reviewed medication(s). Prescription(s) given to the patient. Patient verbalized understanding. Written instructions provided in Bermudian. The patient was discharged home and unaccompanied at time of discharge. She left the Emergency Department ambulatory and via private vehicle. FALL RISK ASSESSMENT: Fall risk assessment completed. No fall risk identified. --18:31 Dee Dee Rousseau R.N. 18:20 01/30/17. BP: 144/78. HR: 70. RR: 18. O2 saturation: 97% on room air. Pain level now: 12/13. --18:31 Dee Dee Rousseau R.N. Locked/Released at 01/31/2017 8:00 by Dee Dee Rousseau R.N.
--- NOTE | 2017-01-31 08:01 | ED MAR SUMMARY ---
..... Medication Administration Record Located Within [facility] [address] [place] [address] Patient: TRINIDAD GIANG Visit ID: [id number] 67y, F Weight: 54.4 kg Height/Length: 63 in BMI: 21.2 ALLERGIES: Cortisone, Neosporin Start 17:41 01/30/2017 Dee Dee Rousseau R.N. Medication Administered: IV NS (SALINE), Dose: IV Fluids over 1 hour(s), Rate: 1000 mL/hr, Dispensed: 1000 mL bag, Site: #1 left AC. Medication Ordered: IV NS : initial bolus 1000 mL (1000 mL/hr), then 1000 mL/hr for X1 (NOW); Skinny. Start 17:42 01/30/2017 Dee Dee Rousseau RRaymond. Medication Administered: CLINDAMYCIN [IVPB], Dose: 900 mg IVPB over 30 hour(s), Rate: 100 mL/hr, Dispensed: 50 mL bag, Site: #1 left AC. Medication Ordered: Clindamycin IV 900 mg/50mL (NOW).
--- NOTE | 2017-01-31 08:01 | ED DISCHARGE INSTRUCTIONS ---
Patient: TRINIDAD GIANG General Instructions [facility] VisitID: [id number] [place] [address] 67y, F Registration Date/Time: 01/30/2017 Paronychia right middle finger. INSTRUCTIONS (salt water warm soaks follow up in 2-3 days to ensure improvement in ER or with PCP Address: [address] [place] [address] elevate arm/ finger). Your Current Medications: CONTINUE TAKING THE FOLLOWING MEDICATIONS: Abilify Oral. Bactrim DS Oral : Started: 01/27/17. Chantix Oral. Dilantin Oral. Metoprolol Tartrate Oral. Pravastatin Sodium Oral. Prescription Medications: Clindamycin 300 mg: take 1 capsule orally every 8 hours for 10 days. No refill. ADDITIONAL INFORMATION Paronychia, Finger Or Toe Paronychia is an infection alongside the fingernail or toenail. It usually occurs from an opening in the cuticle or an ingrown toenail which lets bacteria under the skin. If there is pus present, the infection will need to be drained. If the infection is early, antibiotic treatment alone may be all that you need. Healing will take about 12 weeks. Home care The following guidelines will help you care for your wound at home: Twice a day for the first three days, clean and soak the toe or finger as follows: Soak your foot or hand in a tub of warm water for five minutes. Or, hold your toe or finger under a faucet of warm running water for five minutes. Clean any remaining crust away with soap and water using a cotton-tipped applicator. Apply antibiotic ointment to the infected area. Change the dressing daily or whenever it becomes soiled. If you were prescribed antibiotics, take them as directed until they are all gone. If your infection is on a toe, wear comfortable shoes with a lot of toe room, or open-toe sandals, while your toe is healing. You may use acetaminophen or ibuprofen to control pain, unless another medicine was prescribed.If you have chronic liver or kidney disease or ever had a stomach ulcer or GI bleeding, talk with your doctor before using these medicines. Follow-up care Follow up with your doctor or this facility as explained by our staff. When to seek medical care Get prompt medical attention if any of the following occur: Increasing redness, pain or swelling of the finger or toe Red streaks in the skin leading away from the wound Pus or fluid drainage Fever of 100.4F (38C) or higher, or as directed by your health care provider Clindamycin Hydrochloride Oral capsule What is this medicine? CLINDAMYCIN (SABINO Farr) is a lincosamide antibiotic. It is used to treat certain kinds of bacterial infections. It will not work for colds, flu, or other viral infections. How should I use this medicine? Take this medicine by mouth with a full glass of water. Follow the directions on the prescription label. You can take this medicine with food or on an empty stomach. If the medicine upsets your stomach, take it with food. Take your medicine at regular intervals. Do not take your medicine more often than directed. Take all of your medicine as directed even if you think your are better. Do not skip doses or stop your medicine early. Talk to your band edger regarding the use of this medicine in children. Special care may be needed. What side effects may I notice from receiving this medicine? Side effects that you should report to your doctor or health career agent as soon as possible: allergic reactions like skin rash, itching or hives, swelling of the face, lips, or tongue dark urine pain on swallowing redness, blistering, peeling or loosening of the skin, including inside the mouth unusual bleeding or bruising unusually weak or tired yellowing of eyes or skin Side effects that usually do not require medical attention (report to your doctor or health career agent if they continue or are bothersome): diarrhea itching in the rectal or genital area joint pain nausea, vomiting stomach pain What may interact with this medicine? chloramphenicol erythromycin kaolin products What if I miss a dose? If you miss a dose, take it as soon as you can. If it is almost time for your next dose, take only that dose. Do not take double or extra doses. Where should I keep my medicine? Keep out of the reach of children. Store at room temperature between 20 and 25 degrees C (68 and 77 degrees F). Throw away any unused medicine after the expiration date. What should I tell my health care provider before I take this medicine? They need to know if you have any of these conditions: kidney disease liver disease stomach problems like colitis an unusual or allergic reaction to clindamycin, lincomycin, or other medicines, foods, dyes like tartrazine or preservatives or trying to get breast-feeding What should I watch for while using this medicine? Tell your doctor or healthcare professional if your symptoms do not start to get better or if they get worse. Do not treat diarrhea with over the counter products. Contact your doctor if you have diarrhea that lasts more than 2 days or if it is severe and watery. You have been given the following additional information: Paronychia Clindamycin Hydrochloride Oral capsule (Electronically signed by Kristi Cardoso P.A.-C 01/30/2017 18:43)
--- NOTE | 2017-01-31 08:01 | ED MAR SUMMARY ---
..... Medication Administration Record [facility] [address] [place] [address] Patient: TRINIDAD GIANG Visit ID: [id number] 67y, F Weight: 54.4 kg Height/Length: 63 in BMI: 21.2 ALLERGIES: Cortisone, Neosporin Start 17:41 01/30/2017 Dee Dee Rousseau R.N. Medication Administered: IV NS (SALINE), Dose: IV Fluids over 1 hour(s), Rate: 1000 mL/hr, Dispensed: 1000 mL bag, Site: #1 left AC. Medication Ordered: IV NS : initial bolus 1000 mL (1000 mL/hr), then 1000 mL/hr for X1 (NOW); Skinny. Start 17:42 01/30/2017 Dee Dee Rousseau RRaymond. Medication Administered: CLINDAMYCIN [IVPB], Dose: 900 mg IVPB over 30 hour(s), Rate: 100 mL/hr, Dispensed: 50 mL bag, Site: #1 left AC. Medication Ordered: Clindamycin IV 900 mg/50mL (NOW).
--- NOTE | 2017-01-31 08:01 | ED MED RECONCILIATION SUMMARY ---
Patient: TRINIDAD GIANG Medication Reconciliation Report [facility] VisitID: [id number] [address] [place] [address] 67y, F Registration Date/Time: 01/30/2017 Weight: 54.4 kg Height/Length: 63 in. BMI: 21.3 ALLERGIES: Cortisone, Neosporin The patient's Home Medications are listed below: CONTINUE TAKING THE FOLLOWING MEDICATIONS: Abilify Oral Bactrim DS Oral Chantix Oral Dilantin Oral Metoprolol Tartrate Oral Pravastatin Sodium Oral The source(s) of the original Home Medication information: patient The following Medications were given to the patient in the Emergency Department: IV NS IV Fluids bolus 0, then 1000 mL/hr, administered: 01/30/2017 5:41:00 PM Clindamycin [IVPB] IVPB bolus 0, then 900 mg 100 mL/hr, administered: 01/30/2017 5:42:00 PM The following Medications were prescribed to the patient: Clindamycin 300 mg: take 1 capsule orally every 8 hours for 10 days. No refill. -- Kristi Cardoso PMaryC
--- NOTE | 2017-01-31 08:01 | ED MED RECONCILIATION SUMMARY ---
Patient: TRINIDAD GIANG Medication Reconciliation Report [facility] VisitID: [id number] [address] [place] [address] 67y, F Registration Date/Time: 01/30/2017 Weight: 54.4 kg Height/Length: 63 in. BMI: 21.3 ALLERGIES: Cortisone, Neosporin The patient's Home Medications are listed below: CONTINUE TAKING THE FOLLOWING MEDICATIONS: Abilify Oral Bactrim DS Oral Chantix Oral Dilantin Oral Metoprolol Tartrate Oral Pravastatin Sodium Oral The source(s) of the original Home Medication information: patient The following Medications were given to the patient in the Emergency Department: IV NS IV Fluids bolus 0, then 1000 mL/hr, administered: 01/30/2017 5:41:00 PM Clindamycin [IVPB] IVPB bolus 0, then 900 mg 100 mL/hr, administered: 01/30/2017 5:42:00 PM The following Medications were prescribed to the patient: Clindamycin 300 mg: take 1 capsule orally every 8 hours for 10 days. No refill. -- Kristi Cardoso PMaryC
--- NOTE | 2017-01-31 08:01 | ED DISCHARGE INSTRUCTIONS ---
Patient: TRINIDAD GIANG General Instructions [facility] VisitID: [id number] [place] [address] 67y, F Registration Date/Time: 01/30/2017 Paronychia right middle finger. INSTRUCTIONS (salt water warm soaks follow up in 2-3 days to ensure improvement in ER or with PCP Address: [address] [place] [address] elevate arm/ finger). Your Current Medications: CONTINUE TAKING THE FOLLOWING MEDICATIONS: Abilify Oral. Bactrim DS Oral : Started: 01/27/17. Chantix Oral. Dilantin Oral. Metoprolol Tartrate Oral. Pravastatin Sodium Oral. Prescription Medications: Clindamycin 300 mg: take 1 capsule orally every 8 hours for 10 days. No refill. ADDITIONAL INFORMATION Paronychia, Finger Or Toe Paronychia is an infection alongside the fingernail or toenail. It usually occurs from an opening in the cuticle or an ingrown toenail which lets bacteria under the skin. If there is pus present, the infection will need to be drained. If the infection is early, antibiotic treatment alone may be all that you need. Healing will take about 12 weeks. Home care The following guidelines will help you care for your wound at home: Twice a day for the first three days, clean and soak the toe or finger as follows: Soak your foot or hand in a tub of warm water for five minutes. Or, hold your toe or finger under a faucet of warm running water for five minutes. Clean any remaining crust away with soap and water using a cotton-tipped applicator. Apply antibiotic ointment to the infected area. Change the dressing daily or whenever it becomes soiled. If you were prescribed antibiotics, take them as directed until they are all gone. If your infection is on a toe, wear comfortable shoes with a lot of toe room, or open-toe sandals, while your toe is healing. You may use acetaminophen or ibuprofen to control pain, unless another medicine was prescribed.If you have chronic liver or kidney disease or ever had a stomach ulcer or GI bleeding, talk with your doctor before using these medicines. Follow-up care Follow up with your doctor or this facility as explained by our staff. When to seek medical care Get prompt medical attention if any of the following occur: Increasing redness, pain or swelling of the finger or toe Red streaks in the skin leading away from the wound Pus or fluid drainage Fever of 100.4F (38C) or higher, or as directed by your health care provider Clindamycin Hydrochloride Oral capsule What is this medicine? CLINDAMYCIN (SABINO Farr) is a lincosamide antibiotic. It is used to treat certain kinds of bacterial infections. It will not work for colds, flu, or other viral infections. How should I use this medicine? Take this medicine by mouth with a full glass of water. Follow the directions on the prescription label. You can take this medicine with food or on an empty stomach. If the medicine upsets your stomach, take it with food. Take your medicine at regular intervals. Do not take your medicine more often than directed. Take all of your medicine as directed even if you think your are better. Do not skip doses or stop your medicine early. Talk to your glass block bender regarding the use of this medicine in children. Special care may be needed. What side effects may I notice from receiving this medicine? Side effects that you should report to your doctor or health health care aide as soon as possible: allergic reactions like skin rash, itching or hives, swelling of the face, lips, or tongue dark urine pain on swallowing redness, blistering, peeling or loosening of the skin, including inside the mouth unusual bleeding or bruising unusually weak or tired yellowing of eyes or skin Side effects that usually do not require medical attention (report to your doctor or health health care aide if they continue or are bothersome): diarrhea itching in the rectal or genital area joint pain nausea, vomiting stomach pain What may interact with this medicine? chloramphenicol erythromycin kaolin products What if I miss a dose? If you miss a dose, take it as soon as you can. If it is almost time for your next dose, take only that dose. Do not take double or extra doses. Where should I keep my medicine? Keep out of the reach of children. Store at room temperature between 20 and 25 degrees C (68 and 77 degrees F). Throw away any unused medicine after the expiration date. What should I tell my health care provider before I take this medicine? They need to know if you have any of these conditions: kidney disease liver disease stomach problems like colitis an unusual or allergic reaction to clindamycin, lincomycin, or other medicines, foods, dyes like tartrazine or preservatives or trying to get breast-feeding What should I watch for while using this medicine? Tell your doctor or healthcare professional if your symptoms do not start to get better or if they get worse. Do not treat diarrhea with over the counter products. Contact your doctor if you have diarrhea that lasts more than 2 days or if it is severe and watery. You have been given the following additional information: Paronychia Clindamycin Hydrochloride Oral capsule (Electronically signed by rKisti Cardoso P.A.-C 01/30/2017 18:43)
== END 2017-01-30 18:20 | disposition home or self-care (01) ==
LOC: ED SRH 16:36
DX: L03.011 Cellulitis of right finger (principal); Z87.891 Personal history of nicotine dependence; J44.9 Chronic obstructive pulmonary disease, unspecified; F12.10 Cannabis abuse, uncomplicated; Z79.899 Other long term (current) drug therapy
CPT/HCPCS: 90047; 93004; 95059

== ENCOUNTER 2017-03-20 12:39 | Emergency (ER) | payer OTHER ==
--- NOTE | 2017-03-20 13:33 | ED NURSING NOTES ---
Clinical Report - Nurses [facility] [address] [place] [address] 03/20/2017 12:42 [id number] Triage time 13:Mar 20 2017 13:Mar 20 2017. Acuity: LEVEL 4. Chief Complaint: RIGHT LOWER EXTREMITY PAIN and SWELLING. Location of symptoms- right ankle (pt reports falling 2 days ago and "twisting my ankle" swelling and pain to right ankle). Alert. No acute distress. SEPSIS SCREEN: Sepsis Screen. Negative (no infection suspected/documented). HERVE COMA SCORE: [place] Coma Scale: 15- eyes open spontaneously (4); best verbal response- oriented x 4 (5); best motor response- obeys commands (6). --13:06 Larry Gallegos R.N. 13:02 03/20/17. BP: 152/93. HR: 76. RR: 17. O2 saturation: 99%. Temp: 98.3 F. Pain level now: 02/12. --13:06 Larry Gallegos R.N. Weight: 58.9 kg. Height/Length: 63 inches. BMI: 23. --13:05 Larry Gallegos R.N. Medications Abilify Oral. Bactrim DS Oral, started 01/27/17. Chantix Oral. Dilantin Oral. Metoprolol Tartrate Oral. Pravastatin Sodium Oral. --13:04 Larry Gallegos R.N. Medication/allergy information source: the patient. --13:06 Larry Gallegos R.N. Allergies Cortisone. Neosporin. --13:04 Larry Gallegos R.N. History Arrived by private vehicle. Historian: patient. Injury occurred. Location of injuries: right ankle. She has had trouble walking. 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 PAST MEDICAL HX: Tetanus status: unknown. Immunizations: status is unknown. SOCIAL HX: Smoker- current status unknown (cigarette). History of drug use: marijuana. No alcohol use. No infectious disease exposure. ABUSE ASSESSMENT: No report of abuse. SELF HARM ASSESSMENT: A self harm assessment was performed. The patient answered "no" to the question "Do you have thoughts of harming or killing yourself?". FALL RISK ASSESSMENT: Fall risk assessment completed. No fall risk identified. NUTRITIONAL RISK ASSESSMENT: The nutritional risk assessment revealed no deficiencies. FUNCTIONAL ASSESSMENT: Functional assessment: no impairments noted. LEARNING NEEDS ASSESSMENT: The learning needs assessment revealed no barriers. SKIN INTEGRITY ASSESSMENT: Skin integrity risk assessment completed. No skin integrity risk identified. --13:06 Larry Gallegos R.N. PROBLEMS: Paronychia. Cellulitis. Bowel Obstruction. Vomiting. Contusion. Laceration. Tetanus Status. Conjunctivitis. Immunizations. Abdominal Pain. LNMP - Last Normal Menstrual Period. Hepatitis. Seizure Disorder. Bipolar Disorder. Schizophrenia. COPD - Chronic Obstructive Pulmonary Disease. UTI - Urinary Tract Infection. --13:05 Larry Gallegos R.N. Fractured Phalanx (Finger) [RuleOut]. --13:05 Larry Gallegos R.N. ADDITIONAL SURGERIES: Adenoidectomy. Fracture Repair. Hysterectomy. Tonsillectomy. --13:05 Larry Gallegos R.N. Interventions ID and allergy band on patient. To treatment room. --13:06 Larry Gallegos R.N. PHYSICAL ASSESSMENT Ambulatory to room. GENERAL / NEURO / PSYCH: Oriented X 4. Alert. Appears in no acute distress. EXTREMITIES: Extremity pulses are within normal limits. Neuro-vascular status intact to the extremity. Right ankle: tenderness and swelling. SKIN: Skin intact. Skin is warm and dry. --13:07 Larry Gallegos R.N. NURSING PROGRESS NOTES Patient identifiers checked. Call light placed in reach. Side rails up x 1. Bed placed in lowest position. Brakes of bed on. --13:07 Larry Gallegos R.N. DISPOSITION / DISCHARGE No learning barriers present. Discharge instructions provided and reviewed with the patient. Reviewed medication(s) side effects, precautions, dosing and course information. Prescription(s) given to the patient. The patient was discharged by the physician engineering inspection assistant. She was discharged home. She left the Emergency Department ambulatory and via private vehicle. Patient driving. ( ankle wrapped and OR shoe placed by EDT). --13:41 Larry Gallegos R.N. 13:40 03/20/17. BP: deferred. HR: deferred. RR: deferred. O2 saturation: deferred. Temp: deferred. Pain level now deferred. --13:41 Larry Gallegos R.N. Locked/Released at 03/21/2017 0:24 by Larry Gallegos R.N.
--- NOTE | 2017-03-20 13:33 | ED NURSING NOTES ---
Clinical Report - Nurses [facility] [address] [place] [address] 03/20/2017 12:42 [id number] TRI[facility] Triage time 13:Mar 20 2017 13:Mar 20 2017. Acuity: LEVEL 4. Chief Complaint: RIGHT LOWER EXTREMITY PAIN and SWELLING. Location of symptoms- right ankle (pt reports falling 2 days ago and "twisting my ankle" swelling and pain to right ankle). Alert. No acute distress. SEPSIS SCREEN: Sepsis Screen. Negative (no infection suspected/documented). HERVE COMA SCORE: [place] Coma Scale: 15- eyes open spontaneously (4); best verbal response- oriented x 4 (5); best motor response- obeys commands (6). --13:06 Larry Gallegos R.N. 13:02 03/20/17. BP: 152/93. HR: 76. RR: 17. O2 saturation: 99%. Temp: 98.3 F. Pain level now: 02/12. --13:06 Larry Gallegos R.N. Weight: 58.9 kg. Height/Length: 63 inches. BMI: 23. --13:05 Larry Gallegos R.N. Medications Abilify Oral. Bactrim DS Oral, started 01/27/17. Chantix Oral. Dilantin Oral. Metoprolol Tartrate Oral. Pravastatin Sodium Oral. --13:04 Larry Gallegos R.N. Medication/allergy information source: the patient. --13:06 Larry Gallegos R.N. Allergies Cortisone. Neosporin. --13:04 Larry Gallegos R.N. History Arrived by private vehicle. Historian: patient. Injury occurred. Location of injuries: right ankle. She has had trouble walking. 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 PAST MEDICAL HX: Tetanus status: unknown. Immunizations: status is unknown. SOCIAL HX: Smoker- current status unknown (cigarette). History of drug use: marijuana. No alcohol use. No infectious disease exposure. ABUSE ASSESSMENT: No report of abuse. SELF HARM ASSESSMENT: A self harm assessment was performed. The patient answered "no" to the question "Do you have thoughts of harming or killing yourself?". FALL RISK ASSESSMENT: Fall risk assessment completed. No fall risk identified. NUTRITIONAL RISK ASSESSMENT: The nutritional risk assessment revealed no deficiencies. FUNCTIONAL ASSESSMENT: Functional assessment: no impairments noted. LEARNING NEEDS ASSESSMENT: The learning needs assessment revealed no barriers. SKIN INTEGRITY ASSESSMENT: Skin integrity risk assessment completed. No skin integrity risk identified. --13:06 Larry Gallegos R.N. PROBLEMS: Paronychia. Cellulitis. Bowel Obstruction. Vomiting. Contusion. Laceration. Tetanus Status. Conjunctivitis. Immunizations. Abdominal Pain. LNMP - Last Normal Menstrual Period. Hepatitis. Seizure Disorder. Bipolar Disorder. Schizophrenia. COPD - Chronic Obstructive Pulmonary Disease. UTI - Urinary Tract Infection. --13:05 Larry Gallegos R.N. Fractured Phalanx (Finger) [RuleOut]. --13:05 Larry Gallegos R.N. ADDITIONAL SURGERIES: Adenoidectomy. Fracture Repair. Hysterectomy. Tonsillectomy. --13:05 Larry Gallegos R.N. Interventions ID and allergy band on patient. To treatment room. --13:06 Larry Gallegos R.N. PHYSICAL ASSESSMENT Ambulatory to room. GENERAL / NEURO / PSYCH: Oriented X 4. Alert. Appears in no acute distress. EXTREMITIES: Extremity pulses are within normal limits. Neuro-vascular status intact to the extremity. Right ankle: tenderness and swelling. SKIN: Skin intact. Skin is warm and dry. --13:07 Larry Gallegos R.N. NURSING PROGRESS NOTES Patient identifiers checked. Call light placed in reach. Side rails up x 1. Bed placed in lowest position. Brakes of bed on. --13:07 Larry Gallegos R.N. DISPOSITION / DISCHARGE No learning barriers present. Discharge instructions provided and reviewed with the patient. Reviewed medication(s) side effects, precautions, dosing and course information. Prescription(s) given to the patient. The patient was discharged by the physician resident assistant cna. She was discharged home. She left the Emergency Department ambulatory and via private vehicle. Patient driving. ( ankle wrapped and OR shoe placed by EDT). --13:41 Larry Gallegos R.N. 13:40 03/20/17. BP: deferred. HR: deferred. RR: deferred. O2 saturation: deferred. Temp: deferred. Pain level now deferred. --13:41 Larry Gallegos R.N. Locked/Released at 03/21/2017 0:24 by Larry Gallegos R.N.
--- NOTE | 2017-03-20 13:33 | ED ORDER SUMMARY ---
..... Patient: TRINIDAD GIANG OrderSheet [facility] VisitID: [id number] [address] [place] [address] 67y, F Registration Date/Time: 03/20/2017 ORDER SHEET Weight: 58.9 kg Allergies: Cortisone, Neosporin GENERAL ORDERS: Foot 3V Right Urgent (13:10 03/20/2017 EKoroleva P.A.-C) (Ack 13:13 OSnell) (0:24 KPage-Kuchan R.N.) Ankle 3 or 4V Right Urgent (13:10 03/20/2017 EKoroleva P.A.-C) (Ack 13:13 OSnell) (0:24 KPage-Kuchan R.N.) Post-op Shoe (13:41 03/20/2017 EKoroleva P.A.-C) (0:24 KPage-Kuchan R.N.) MEDICATION ORDERS: IV FLUIDS: ORDER SHEET NOTES: [Electronically signed by Kristi Cardoso P.A.-C (13:42 03/20/2017)] [Electronically signed by Larry Gallegos R.N. (00:24 03/21/2017)] [Electronically locked/signed by Larry Gallegos R.N. (00:24 03/21/2017)]
--- NOTE | 2017-03-20 13:33 | ED CLINICAL REPORT ---
Clinical Report - Physicians/Mid Levels [facility] [address] [place] [address] 03/20/2017 12:42 [id number] Time Seen: 13:03 Mar 20 2017. Arrived- By private vehicle. HISTORY OF PRESENT ILLNESS Chief Complaint: Injury to the right foot. The injury happened 2 days months. Occurred at home. The patient sustained a twisting injury. Patient is experiencing mild pain. (patient reports falling 2 days ago, twisting her ankle. Previous ankle surgery and plating. Patient denies any other injuries to her hand or wrist or head. Patient has been ambulatory, however with pain.). REVIEW OF SYSTEMS The patient complains of pain on weight bearing. All systems otherwise negative, except as recorded above. PAST HISTORY The patient has not had a prior injury to the same area. SOCIAL HISTORY Current every day light tobacco smoker. History of drug use: marijuana. No alcohol use. ADDITIONAL NOTES The nursing notes have been reviewed. PHYSICAL EXAM Vital Signs: 03/20/2017 13:02 BP: 152/93. HR: 76. RR: 17. O2 saturation: 99%. Temp: 98.3 F. Pain level now: 6/10. Appearance: Alert. Head: Head atraumatic. ENT: Ears normal. Nose normal. Pharynx normal. Neck: Normal inspection. Neck supple. CVS: Normal heart rate and rhythm. Heart sounds normal. Respiratory: No respiratory distress. Breath sounds normal. Abdomen: No visible injury. Nontender. No abdominal tenderness. Extremities: Right posterior ankle. No tenderness or laceration. Right lateral ankle: mild tenderness and swelling of the lateral malleolus. No ecchymosis or deformity. Right medial ankle. No tenderness. Base of the right 5th metatarsal: tenderness and swelling. No ecchymosis or puncture wound. Right dorsal foot: tenderness of the distal aspect and lateral aspect of the dorsal foot. No swelling, ecchymosis or puncture wound. Right foot, plantar aspect. No tenderness or laceration. Gait: Limping gait. Neuro, Vascular and Tendons: Vascular status intact. Motor intact. LABS, X-RAYS, AND EKG Rt Ankle X-ray: (no signs of fx, prior hayley in good place, as reviewed with DR. shaw). Rt Foot X-ray: (neg for acute fx as reviewed with DR. Shaw). PROGRESS AND PROCEDURES PROCEDURES (post op shoe). Course of Care: patient with 2 day injury, no signs of active fracture. Patient with no signs of eecchymosis. Patient with no signs of laceration. Ambulatory. No Achilles or calcaneus tenderness. No other injuries. Patient is stable. Symptoms better. Patient/family counseled. Disposition: Discharged. CLINICAL IMPRESSION Sprain of the tibiofibular ligament of the right ankle. Contusion to the right foot. INSTRUCTIONS Apply ice. Elevate affected areas above chest level. Prescription Medications: Ibuprofen 800 mg tablets: take 1 tablet orally every 8 hours for 5 days, as needed for pain. Dispense fifteen (15). Follow-up: Follow up with your doctor as needed. (Electronically signed by Kristi Cardoso P.A.-C 03/20/2017 13:42)
--- NOTE | 2017-03-20 13:33 | ED CLINICAL REPORT ---
Clinical Report - Physicians/Mid Levels [facility] [address] [place] [address] 03/20/2017 12:42 [id number] Time Seen: 13:03 Mar 20 2017. Arrived- By private vehicle. HISTORY OF PRESENT ILLNESS Chief Complaint: Injury to the right foot. The injury happened 2 days months. Occurred at home. The patient sustained a twisting injury. Patient is experiencing mild pain. (patient reports falling 2 days ago, twisting her ankle. Previous ankle surgery and plating. Patient denies any other injuries to her hand or wrist or head. Patient has been ambulatory, however with pain.). REVIEW OF SYSTEMS The patient complains of pain on weight bearing. All systems otherwise negative, except as recorded above. PAST HISTORY The patient has not had a prior injury to the same area. SOCIAL HISTORY Current every day light tobacco smoker. History of drug use: marijuana. No alcohol use. ADDITIONAL NOTES The nursing notes have been reviewed. PHYSICAL EXAM Vital Signs: 03/20/2017 13:02 BP: 152/93. HR: 76. RR: 17. O2 saturation: 99%. Temp: 98.3 F. Pain level now: 6/10. Appearance: Alert. Head: Head atraumatic. ENT: Ears normal. Nose normal. Pharynx normal. Neck: Normal inspection. Neck supple. CVS: Normal heart rate and rhythm. Heart sounds normal. Respiratory: No respiratory distress. Breath sounds normal. Abdomen: No visible injury. Nontender. No abdominal tenderness. Extremities: Right posterior ankle. No tenderness or laceration. Right lateral ankle: mild tenderness and swelling of the lateral malleolus. No ecchymosis or deformity. Right medial ankle. No tenderness. Base of the right 5th metatarsal: tenderness and swelling. No ecchymosis or puncture wound. Right dorsal foot: tenderness of the distal aspect and lateral aspect of the dorsal foot. No swelling, ecchymosis or puncture wound. Right foot, plantar aspect. No tenderness or laceration. Gait: Limping gait. Neuro, Vascular and Tendons: Vascular status intact. Motor intact. LABS, X-RAYS, AND EKG Rt Ankle X-ray: (no signs of fx, prior hayley in good place, as reviewed with DR. shaw). Rt Foot X-ray: (neg for acute fx as reviewed with DR. Shaw). PROGRESS AND PROCEDURES PROCEDURES (post op shoe). Course of Care: patient with 2 day injury, no signs of active fracture. Patient with no signs of eecchymosis. Patient with no signs of laceration. Ambulatory. No Achilles or calcaneus tenderness. No other injuries. Patient is stable. Symptoms better. Patient/family counseled. Disposition: Discharged. CLINICAL IMPRESSION Sprain of the tibiofibular ligament of the right ankle. Contusion to the right foot. INSTRUCTIONS Apply ice. Elevate affected areas above chest level. Prescription Medications: Ibuprofen 800 mg tablets: take 1 tablet orally every 8 hours for 5 days, as needed for pain. Dispense fifteen (15). Follow-up: Follow up with your doctor as needed. (Electronically signed by Kristi Cardoso P.A.-C 03/20/2017 13:42)
--- NOTE | 2017-03-20 13:33 | ED ORDER SUMMARY ---
..... Patient: TRINIDAD GIANG OrderSheet [facility] VisitID: [id number] [address] [place] [address] 67y, F Registration Date/Time: 03/20/2017 ORDER SHEET Weight: 58.9 kg Allergies: Cortisone, Neosporin GENERAL ORDERS: Foot 3V Right Urgent (13:10 03/20/2017 EKoroleva P.A.-C) (Ack 13:13 OSnell) (0:24 KPage-Kuchan R.N.) Ankle 3 or 4V Right Urgent (13:10 03/20/2017 EKoroleva P.A.-C) (Ack 13:13 OSnell) (0:24 KPage-Kuchan R.N.) Post-op Shoe (13:41 03/20/2017 EKoroleva P.A.-C) (0:24 KPage-Kuchan R.N.) MEDICATION ORDERS: IV FLUIDS: ORDER SHEET NOTES: [Electronically signed by Kristi Cardoso P.A.-C (13:42 03/20/2017)] [Electronically signed by Larry Gallegos R.N. (00:24 03/21/2017)] [Electronically locked/signed by Larry Gallegos R.N. (00:24 03/21/2017)]
--- NOTE | 2017-03-20 14:29 | DIAGNOSTIC IMAGING REPORT ---
PROCEDURE: XR FOOT 3 VIEWS - RIGHT INDICATION: TRAUMA/INJURY TECHNIQUE: Three views of the right foot. COMPARISON: None. FINDINGS: Decreased mineralization. No acute fractures. Moderate hallux valgus of the first MTP joint with mild degenerative changes. Otherwise normal bony alignment. Intact medial malleolar screws present. Mild dorsal forefoot soft tissue swelling. No radiodense foreign bodies. IMPRESSION: 1. No acute fractures. 2. Moderate first MTP joint hallux valgus with mild degeneration. 3. Intact medial malleolar screws.
--- NOTE | 2017-03-20 14:30 | DIAGNOSTIC IMAGING REPORT ---
PROCEDURE: XR ANKLE 3 OR 4 VIEWS - RIGHT INDICATION: TRAUMA/INJURY TECHNIQUE: Four views of the right ankle. COMPARISON: None. FINDINGS: Decreased mineralization. No fractures. Ankle mortise intact. Normal osseous alignment. No tibiotalar joint effusion. No suspicious soft- tissue calcification or radiodense foreign bodies. Achilles tendon appears grossly normal. Intact medial malleolar screws. IMPRESSION: 1. Intact right ankle. 2. No evidence of hardware failure.
--- NOTE | 2017-03-21 00:24 | ED DISCHARGE INSTRUCTIONS ---
Patient: TRINIDAD GIANG General Instructions [facility] VisitID: [id number] [place] [address] 67y, F Registration Date/Time: 03/20/2017 Sprain of the tibiofibular ligament of the right ankle. Contusion to the right foot. INSTRUCTIONS Apply ice. Elevate affected areas above chest level. Prescription Medications: Ibuprofen 800 mg tablets: take 1 tablet orally every 8 hours for 5 days, as needed for pain. Dispense fifteen (15). Follow-up: Follow up with your doctor as needed. ADDITIONAL INFORMATION Sprain, Ankle,With X-Ray A sprain is an injury to the ligaments or capsule that holds a joint together. There are no broken bones. Most sprains take from four to six weeks to heal. If the ligament is completely torn (severe sprain), it can take several months to recover. Mild to moderate sprains may be treated with an elastic wrap or an in-shoe splint to provide support and prevent re-injury. A mild sprain may not require any additional support. A severe sprain may require surgery to repair. Home care The following guidelines will help you care for your injury at home: Stay off the injured leg as much as possible until you can walk on it without pain. If you have a lot of pain with walking, crutches or a walker may be prescribed. (These can be rented or purchased at many pharmacies and surgical or orthopedic supply stores). Follow your doctor's advice regarding when to begin bearing weight on that leg. Keep your leg elevated to reduce pain and swelling. When sleeping, place a pillow under the injured leg. When sitting, support the injured leg so it is level with your waist. This is very important during the first 48 hours. Apply an ice pack (ice cubes in a plastic bag, wrapped in a towel) over the injured area for 20 minutes every 12 hours the first day. You can place the ice pack directly over the splint/cast. If you were given a boot, open it to apply the ice pack. Continue with ice packs 34 times a day for the next two days, then as needed for the relief of pain and swelling. You may use acetaminophen or ibuprofen to control pain, unless another pain medicine was prescribed. If you have chronic liver or kidney disease or ever had a stomach ulcer or GI bleeding, talk with your doctor before using these medicines. You may return to sports after healing, when you can run without pain. A sprained ankle is at risk for re-injury during the first six weeks. During that time, protect your ankle with an in-shoe splint that prevents tilting of your ankle from side to side. This is very important if you do active work or play sports during that time. Follow-up care Any X-rays you had today dont show any broken bones, breaks, or fractures. Sometimes fractures dont show up on the first X-ray. Bruises and sprains can sometimes hurt as much as a fracture. These injuries can take time to heal completely. If your symptoms dont improve or they get worse, talk with your doctor. You may need a repeat X-ray. When to seek medical care Get prompt medical attention if any of the following occur: The plaster cast or splint gets wet or soft The fiberglass cast or splint gets wet and does not dry for 24 hours Pain or swelling increases, or redness appears Toes become cold, blue, numb or tingly Re-injure your ankle Contusion:Lower Extremity You have a CONTUSION of your LOWER extremity (leg, knee, ankle, foot, or toes). This causes local pain, swelling and sometimes bruising. There are no broken bones. This injury may take from a few days to a few weeks to heal. Home Care: 1) Keep your leg elevated to reduce pain and swelling. When sleeping, place a pillow under the injured leg. When sitting, support the injured leg so it is level with your waist. This is very important during the first 48 hours. 2) If CRUTCHES have been advised, do not bear full weight on the injured leg until you can do so without pain. You may return to sports when you are able to hop and run on the injured leg without pain. 3) Apply an ice pack (ice cubes in a plastic bag, wrapped in a towel) over the injured area for 20 minutes every 1-2 hours the first day for pain relief. Continue this 3-4 times a day until the pain and swelling goes away. 4) You may use acetaminophen (Tylenol) or ibuprofen (Motrin, Advil) to control pain, unless another pain medicine was prescribed. [ NOTE : If you have chronic liver or kidney disease or ever had a stomach ulcer or GI bleeding, talk with your doctor before using these medicines.] Follow Up with your doctor or this facility if you are not starting to improve within the next THREE days. [NOTE: If X-rays were taken, they will be reviewed by a radiologist. You will be notified of any new findings that may affect your care.] Get Prompt Medical Attention if any of the following occur: -- Pain or swelling increases -- Toes become cold, blue, numb or tingly -- Redness, warmth or drainage from the skin Contusion: Foot You have a CONTUSION of your foot. This causes local pain, swelling and sometimes bruising. There are no broken bones. This injury may take from a few days to a few weeks to heal. Home Care: 1) Keep your LEG elevated to reduce pain and swelling. This is very important during the first 48 hours. If walking causes pain, stay off the injured leg until you can walk without pain. 2) If CRUTCHES have been advised, do not bear full weight on the injured leg until you can do so without pain. You may return to sports when you are able to hop and run on the injured leg without pain. 3) Make an ice pack (ice cubes in a plastic bag, wrapped in a towel) and apply for 20 minutes every 1-2 hours the first day. Continue this 3-4 times a day until the swelling goes down. 4) You may use acetaminophen (Tylenol) or ibuprofen (Motrin, Advil) to control pain, unless another pain medicine was prescribed. [ NOTE : If you have chronic liver or kidney disease or ever had a stomach ulcer or GI bleeding, talk with your doctor before using these medicines.] Follow Up with your doctor or this facility if you are not starting to improve within the next THREE days. [NOTE: If X-rays were taken, they will be reviewed by a radiologist. You will be notified of any new findings that may affect your care.] Get Prompt Medical Attention if any of the following occur: -- Pain or swelling increases -- Toes become cold, blue, numb or tingly -- Redness, warmth or drainage from the skin You have been given the following additional information: Sprain, Ankle, With X-Ray Contusion, Lower Extremity Contusion, Foot (Electronically signed by Kristi Cardoso P.A.-C 03/20/2017 13:42)
--- NOTE | 2017-03-21 00:25 | ED MAR SUMMARY ---
..... Medication Administration Record [facility] [address] [place], [place] [id number] Patient: TRINIDAD GIANG Visit ID: [id number] 67y, F Weight: 58.9 kg Height/Length: 63 in BMI: 23 ALLERGIES: Cortisone, Neosporin
--- NOTE | 2017-03-21 00:25 | ED MED RECONCILIATION SUMMARY ---
Patient: TRINIDAD GIANG Medication Reconciliation Report [facility] VisitID: [id number] [address] [place] [address] 67y, F Registration Date/Time: 03/20/2017 Weight: 58.9 kg Height/Length: 63 in. BMI: 23.0 ALLERGIES: Cortisone, Neosporin The patient's Home Medications are listed below: THE FOLLOWING MEDICATIONS NEED TO BE RECONCILED: Abilify Oral Bactrim DS Oral Chantix Oral Dilantin Oral Metoprolol Tartrate Oral Pravastatin Sodium Oral The source(s) of the original Home Medication information: patient The following Medications were given to the patient in the Emergency Department: None. The following Medications were prescribed to the patient: Ibuprofen 800 mg tablets: take 1 tablet orally every 8 hours for 5 days, as needed for pain. Dispense fifteen (15). -- Kristi Cardoso P.A.-C
--- NOTE | 2017-03-21 00:25 | ED MAR SUMMARY ---
..... Medication Administration Record [facility] [address] [place], [place] [id number] Patient: TRINIDAD GIANG Visit ID: [id number] 67y, F Weight: 58.9 kg Height/Length: 63 in BMI: 23 ALLERGIES: Cortisone, Neosporin
--- NOTE | 2017-03-21 00:25 | ED MED RECONCILIATION SUMMARY ---
Patient: TRINIDAD GIANG Medication Reconciliation Report [facility] VisitID: [id number] [address] [place] [address] 67y, F Registration Date/Time: 03/20/2017 Weight: 58.9 kg Height/Length: 63 in. BMI: 23.0 ALLERGIES: Cortisone, Neosporin The patient's Home Medications are listed below: THE FOLLOWING MEDICATIONS NEED TO BE RECONCILED: Abilify Oral Bactrim DS Oral Chantix Oral Dilantin Oral Metoprolol Tartrate Oral Pravastatin Sodium Oral The source(s) of the original Home Medication information: patient The following Medications were given to the patient in the Emergency Department: None. The following Medications were prescribed to the patient: Ibuprofen 800 mg tablets: take 1 tablet orally every 8 hours for 5 days, as needed for pain. Dispense fifteen (15). -- Kristi Cardoso P.A.-C
== END 2017-03-20 13:39 | disposition home or self-care (01) ==
LOC: ED SRH 12:39
DX: S93.432A Sprain of tibiofibular ligament of left ankle, initial encounter (principal); S90.31XA Contusion of right foot, initial encounter; W19.XXXA Unspecified fall, initial encounter; Y93.9 Activity, unspecified; Y99.9 Unspecified external cause status; Y92.9 Unspecified place or not applicable; Z72.0 Tobacco use